=== PATIENT | male | born 2000 | race African-American/Black ===

== ENCOUNTER 2019-05-20 09:05 | Emergency (ER) | payer BC, MEDICAID ==
[~2019-05-20] VITALS: Ht 157.5 cm; Wt 63.6 kg
[~2019-05-20 09:05] MED LIST: BACTRIM DS 8001 TAB PO; CEPHALEXIN500 M1 PO; LAMICTAL XR200 MG PO; ROBINUL1 MG PO; SINGULAIR 5M5 MG/TAB PO; SINGULAIR10 MG PO; ZYRTEC5 MG PO
[2019-05-20 09:54] LABS: BASO % 0.4 % (0.0-2.0); EOS # 0.1 (0.0-0.7); GRAN # 3.5 (1.4-6.5); HEMATOCRIT 40.7 % (42.0-52.0); HEMOGLOBIN 14.5 g/dl (13.5-18.0); LYMPH # 1.4 (1.2-3.4); LYMPH % 25.4 % (20.0-51.0); MEAN CELL VOLUME 90 fl (80.0-100.0); MEAN CORPUSCULAR HEMOGLOBIN 32 pg (27.0-31.0); MEAN CORPUSCULAR HGB CONC 36 g/dl (33.0-37.0); MEAN PLATELET VOLUME 11.1 fl (7.4-10.4); MONO # 0.5 (0.1-0.6); MONO % 8.8 % (1.7-9.3); PLATELET COUNT 195 K/mm3 (130-400); RED BLOOD COUNT 4.54 M/mm3 (4.20-5.60); REDCELL DISTRIBUTION WIDTH-CV 12.2 % (11.5-14.5)
[2019-05-20] MEDS ORDERED: MULTI VITAMINS1 TAB PO (09:56)
[2019-05-20 10:11] LABS: BILIRUBIN,TOTAL 0.7 mg/dL (0.0-1.0); CALCIUM 9.9 mg/dL (8.4-10.2); CREATININE, serum 0.78 (0.66-1.25); MAGNESIUM 1.7 mg/dL (1.6-2.3); PHOSPHOROUS 3.2 mg/dL (2.5-4.5); POTASSIUM 4.2 mmol/L (3.4-5.0); TOTAL PROTEIN 8.1 gm/dL (6.4-8.2)
[2019-05-20 13:30] VITALS: BP 114/71; PULSE 62; TEMP 98
== END 2019-05-20 13:30 | disposition home or self-care (01) ==
LOC: COL.ER 09:05
PROVIDERS: Emergency Medicine
DX: G40.909 Epilepsy, unspecified, not intractable, without status epilepticus (principal)
CPT/HCPCS: J2060; J7030